=== PATIENT | female | born 1995 | race Caucasian/White ===

== ENCOUNTER 2019-10-12 19:04 | Inpatient (IN) | payer BC ==
[2019-10-12] MEDS ORDERED: TERBUTALINE 1 MG/ML VIAL SQ PRN (19:46)
[2019-10-12] MEDS ORDERED: METHYLERGONOVINE 0.2 MG/ML 1 ML AMP IM PRN (19:46)
[2019-10-12] MEDS ORDERED: LIDOCAINE 0.5% (PF) 5 MG/ML (50 ML SDV) SQ PRN (19:46)
[2019-10-12] MEDS ORDERED: CARBOPROST TROMETHAMINE 250 MCG/ML 1 ML AMP IM PRN (19:46)
[2019-10-12] MEDS ORDERED: OXYTOCIN 10 UNIT/ML 1 ML VIAL IM PRN (19:46)
[2019-10-12] MEDS ORDERED: OXYTOCIN 30 UNITS/500 ML NS 30 UNIT in SALINE 1 500ML.BAG IV SCH (20:00)
[2019-10-12] MEDS: LACTATED RINGERS 1,000 ML IV SCH (20:29)
[2019-10-12 20:45] LABS: Basophils # (A) 0.1 k/uL (0-0.2); Basophils % (A) 0 %; Eosinophils # (A) 0.1 k/uL (0-0.7); Eosinophils % (A) 1 %; HCT 39.4 % (34.0-46.0); Lymphocytes # (A) 1.5 k/uL (1.0-4.8); Lymphocytes % (A) 12 %; MCH 29.4 pg (25.0-35.0); MCHC 32.9 g/dL (31.0-37.0); MCV 89.5 fL (80.0-100.0); Mean Platelet Volume 7.9; Monocytes # (A) 0.7 k/uL (0-1.0); Monocytes % (A) 5 %; Neutrophils # (A) 10.1 k/uL (1.3-7.7); Neutrophils % (A) 80 %; Platelet Count 295 k/uL (150-450); RDW 14.5 % (11.5-15.5); WBC 12.6 k/uL (3.8-10.6)
[2019-10-12 20:59] LABS: ALT 15 U/L (4-34); AST 27 U/L (14-36); African American GFR (CKD) >90 (>60 ml/min/1.73 sqM); Blood Urea Nitrogen 12 mg/dL (7-17); Creatinine,Urine Random 65.7 mg/dL; LDH 437 U/L (313-618); Non-African American GFR(CKD) >90 (>60 ml/min/1.73 sqM); Protein/Creatinine Ratio,Urine 0.406; Uric Acid 4.8 mg/dL (3.7-7.4)
[2019-10-12 21:00] LABS: Appearance,Urine Clear (Clear); Bilirubin,Urine Negative (Negative); Blood,Urine Small (Negative); Color,Urine Light Yellow; Glucose,Urine (UA) Negative (Negative); Ketones,Urine Negative (Negative); Leukocyte Esterase,Urine Negative (Negative); Mucus,Urine Rare /hpf; Nitrite,Urine Negative (Negative); PH, Urine 6.5 (5.0-8.0); Protein,Urine Negative (Negative); RBC,Urine 34 /hpf (0-5); Specific Gravity,Urine 1.015 (1.001-1.035); Squamous Epithelial Cell,Urine <1 /hpf (0-4); Urobilinogen,Urine <2.0 mg/dL (<2.0); WBC,Urine 1 /hpf (0-5)
[2019-10-12 21:19] LABS: INR 0.9 (<1.2); Partial Thromboplastin Time 23.3 sec (22.0-30.0); Prothrombin Time 9.3 sec (9.0-12.0)
[2019-10-12] MEDS: BUTORPHANOL 1 MG/ML 1 ML VIAL IV PRN (23:48)
[2019-10-13] MEDS: BUTORPHANOL 1 MG/ML 1 ML VIAL IV PRN ×2 (02:03→04:03)
[2019-10-13] MEDS: LACTATED RINGERS 1,000 ML IV SCH ×2 (02:07→07:40)
[2019-10-13] MEDS: CLINDAMYCIN 900 MG in DEXTROSE 5% IN WATER 50 ML IVPB SCH ×4 (05:57→15:20)
[2019-10-13] MEDS ORDERED: ROPIVACAINE 100 MG, fentaNYL (PF) 200 MCG in SODIUM CHLORIDE 0.9% 76 ML EPIDURAL ONE (08:22)
--- NOTE | 2019-10-13 09:32 | P.HPOB ---
History of Present Illness H&P Date: 10/13/19 Chief Complaint: Spontaneous rupture of membranes 24-year-old presents at 39 weeks with spontaneous rupture membranes at 6 PM on 10/12/2019. She presented to the hospital 7:45 PM and was closed, thick, and -3 station. She is not nydia. heart tones 130 with moderate variability and reactive. Review of Systems All systems: negative Constitutional: Denies chills, Denies fever Eyes: denies blurred vision, denies pain Ears, nose, mouth and throat: Denies headache, Denies sore throat Cardiovascular: Denies chest pain, Denies shortness of breath Respiratory: Denies cough Gastrointestinal: Denies abdominal pain, Denies diarrhea, Denies nausea, Denies vomiting Genitourinary: Denies dysuria, Denies hematuria Musculoskeletal: Denies myalgias Integumentary: Denies pruritus, Denies rash Neurological: Denies numbness, Denies weakness Psychiatric: Denies anxiety, Denies depression Endocrine: Denies fatigue, Denies weight change Past Medical History Past Medical History: No Reported History Additional Past Medical History / Comment(s): Obstetric history: This is her first . She's had care with me since first trimester. Blood type A+, antibody is negative, HIV nonreactive, rubella immune, RPR nonreactive, hepatitis B negative, toxoplasma negative EDC by 8 week ultrasound. With her anatomy ultrasound showed a marginal previa which did resolve low. She did receive to depth during this . Her GBS is negative. History of Any Multi-Drug Resistant Organisms: None Reported Past Surgical History: Adenoidectomy, Tonsillectomy Additional Past Surgical History / Comment(s): [place] teeth removed Past Anesthesia/Blood Transfusion Reactions: No Reported Reaction Past Psychological History: No Psychological Hx Reported Smoking Status: Never smoker Past Alcohol Use History: None Reported Past Drug Use History: None Reported - Past Family History Father Family Medical History: No Reported History Medications and Allergies Home Medications Medication Instructions Recorded Confirmed Type Pnv No.95/Ferrous Fum/Folic AC 1 tab PO ONCE 10/12/19 10/12/19 History [ Multivitamin Tablet] Allergies Allergy/AdvReac Type Severity Reaction Status Date / Time Penicillins AdvReac Anaphylaxis Verified 10/12/19 19:15 Exam Osteopathic Statement: *. No significant issues noted on an osteopathic structural exam other than those noted in the History and Physical/Consult. Vital Signs Temp Pulse Resp BP Pulse Ox 10/12/19 19:52 97.8 F 107 H 16 160/89 98 10/12/19 19:46 97.8 F 107 H 16 160/89 98 Intake and Output 10/12/19 10/13/19 10/13/19 22:59 06:59 14:59 Other: # Voids 1 1 Weight 91.172 kg Heart: Regular rate and rhythm Lungs: Clear to auscultation bilaterally Abdomen: Soft, nontender Extremities: Negative Homans sign Results Result Diagrams: 10/12/19 20:20 10/12/19 20:20 Abnormal Lab Results - Last 24 Hours (Table) 10/12/19 10/12/19 10/12/19 Range/Units 20:20 20:20 20:20 WBC 12.6 H (3.8-10.6) k/uL Neutrophils # 10.1 H (1.3-7.7) k/uL Urine Blood Small H (Negative) Urine RBC 34 H (0-5) /hpf Urine Mucus Rare H (None) /hpf U Random Total Protein 26 H (<12) mg/dL Assessment and Plan (1) Normal labor Current Visit: Yes Status: Acute Code(s): O80 - ENCOUNTER FOR FULL-TERM UNCOMPLICATED DELIVERY; Z37.9 - OUTCOME OF DELIVERY, UNSPECIFIED SNOMED Code(s): 64128549 Plan: 1. Some of her blood pressures have been elevated today preeclamptic labs which were all negative except for the PC ratio was 0.4. It is unclear whether this was contaminated from the ruptured membranes. 2. Pitocin augmentation 3. Anticipate normal vaginal delivery.
[2019-10-13] MEDS ORDERED: diphenhydrAMINE 50 MG CAP PO PRN (13:29)
[2019-10-13] MEDS ORDERED: BENZOCAINE/MENTHOL SPRAY 1 GM/SPRAY AEROSOL TOPICAL PRN (13:29)
[2019-10-13] MEDS ORDERED: diphenhydrAMINE 25 MG CAP PO PRN (13:29)
[2019-10-13] MEDS ORDERED: WITCH HAZEL 1 EACH MED..PAD TOPICAL PRN (13:29)
[2019-10-13] MEDS ORDERED: LANOLIN CREAM 5 GM TUBE TOPICAL PRN (13:29)
[2019-10-13] MEDS ORDERED: SIMETHICONE 80 MG CHEWABLE PO PRN (13:29)
[2019-10-13] MEDS ORDERED: ZOLPIDEM 5 MG TAB PO PRN (13:29)
[2019-10-13] MEDS ORDERED: HYDROCORTISONE 2.5% RECTAL CREAM 30 GM TUBE RECTAL PRN (13:29)
[2019-10-13] MEDS ORDERED: diphenhydrAMINE 50 MG/ML 1 ML VIAL IVP PRN ×2 (13:29)
[2019-10-13] MEDS ORDERED: ACETAMINOPHEN TAB 325 MG TAB PO PRN (13:29)
[2019-10-13] MEDS ORDERED: OXYTOCIN 20 UNITS/1000 ML NS 1,000 ML IV SCH (13:30)
[2019-10-13] MEDS: SENNOSIDES-DOCUSATE SODIUM 1 EACH TAB PO SCH (19:38)
[2019-10-13] MEDS: IBUPROFEN 600 MG TAB PO PRN (19:38)
--- NOTE | 2019-10-14 02:34 | P.PROBDLV ---
Vaginal Delivery Note - . Vaginal Delivery Note: 24-year-old presents at 39 weeks with spontaneous rupture membranes at 6 PM on 10/12/2019. She presented to the hospital 7:45 PM and was closed, thick, and -3 station. She is not nydia. heart tones 130 with moderate variability and reactive. Pitocin augmentation was started. She started getting comfortable and had some position changes. Her cervix was 1 cm dilated she did get some Stadol. She dilated 3 cm and got an epidural and was comforta ble. Her cervix was completely dilated at 11:27 AM. She pushed and delivered a viable female over intact perineum under epidural anesthesia at 1300. Head delivered OA, anterior shoulder delivered gentle downward guidance of the posterior shoulder and rest of body. Nose and mouth bulb suctioned, cord clamped and cut, infant placed mother's abdomen. Apgars 8, 9, weight 7 lbs. 7 oz. Placenta delivered spontaneously, intact with three-vessel cord at 1304. Vagina, cervix, and perineum were inspected. Second-degree midline laceration was repaired with 2-0 Vicryl and 3-0 Vicryl. Quantitative blood loss 219 mL. Mother and baby in stable condition.
[2019-10-14 06:27] LABS: Basophils % (A) 0 %; Eosinophils % (A) 0 %; HCT 33.9 % (34.0-46.0); HGB 10.8 gm/dL (11.4-16.0); Lymphocytes # (A) 1.9 k/uL (1.0-4.8); Lymphocytes % (A) 11 %; MCH 29.4 pg (25.0-35.0); MCHC 31.9 g/dL (31.0-37.0); Mean Platelet Volume 7.6; Monocytes # (A) 0.7 k/uL (0-1.0); Monocytes % (A) 4 %; Neutrophils # (A) 13.4 k/uL (1.3-7.7); Neutrophils % (A) 83 %; Platelet Count 264 k/uL (150-450); RBC 3.68 m/uL (3.80-5.40); RDW 14.9 % (11.5-15.5); WBC 16.3 k/uL (3.8-10.6)
--- NOTE | 2019-10-14 06:35 | P.PNOBGVD ---
Subjective - Subjective Principal diagnosis: Status was normal vaginal delivery day #1 Interval history: Patient seen and examined. Denies nausea, vomiting, chest pain, shortness of breath, calf pain, headache, vision changes or right upper quadrant pain. She had a few elevated blood pressures overnight up to 140s over 100s and 150s over 90s. Her most recent though was 135/85. Patient reports: Reports appetite normal, Reports voiding normally, Reports pain well controlled, Reports ambulating normally : doing well Objective - Latest Vital Signs Latest vital signs: Vital Signs Temp Pulse Resp BP Pulse Ox 10/14/19 04:00 98.6 F 82 16 135/88 97 10/14/19 00:00 98.7 F 85 19 150/94 10/13/19 20:00 98.7 F 103 H 16 147/102 99 10/13/19 15:10 99.2 F 108 H 15 146/75 98 10/13/19 14:40 99.2 F 126 H 15 141/75 98 10/13/19 14:10 125 H 15 140/78 98 10/13/19 13:55 130 H 15 145/79 98 10/13/19 13:40 122 H 15 141/78 98 10/13/19 13:25 120 H 16 141/80 98 10/13/19 13:10 98.1 F 119 H 15 142/84 98 Intake and Output 10/13/19 10/13/19 10/14/19 14:59 22:59 06:59 Intake Total 100 Balance 100 Intake: IV 100 Other: # Voids 2 - Exam Lungs: bilateral: normal Chest: Normal S1, Normal S2 Extremities: Present: normal Abdomen: Present: normal appearance, soft Uterus: Present: normal, firm Assessment and Plan (1) Normal labor Current Visit: Yes Status: Resolved Code(s): O80 - ENCOUNTER FOR FULL-TERM UNCOMPLICATED DELIVERY; Z37.9 - OUTCOME OF DELIVERY, UNSPECIFIED SNOMED Code(s): 86023790 (2) Status post normal vaginal delivery Current Visit: Yes Status: Acute Code(s): [id number] - SNOMED Code(s): 699755090 (3) Gestational hypertension Current Visit: Yes Status: Acute Code(s): O13.9 - GESTATIONAL HTN W/O SIGNIFICANT PROTEINURIA, UNSP TRIMESTER SNOMED Code(s): 436617953 Plan: 1. Continue care 2. I will keep the patient for another night to monitor her blood pressures. If they continue to be elevated and may start labetalol. 3. Signs and symptoms preeclampsia were reviewed. The patient did have a PC ratio 0.4 when she arrived, there was significant blood in her urine and her water was broken at times it was unclear whether the protein was from those other things.
[2019-10-14] MEDS: SENNOSIDES-DOCUSATE SODIUM 1 EACH TAB PO SCH ×2 (07:33→22:55)
[2019-10-14] MEDS: IBUPROFEN 600 MG TAB PO PRN ×2 (14:08→19:37)
--- NOTE | 2019-10-15 07:55 | P.DS ---
Providers Date of admission: 10/12/19 19:37 Expected date of discharge: 10/15/19 Attending physician: Dara Santana Primary care physician: Stated None - Discharge Diagnosis(es) (1) Normal labor Current Visit: Yes Status: Resolved (2) Status post normal vaginal delivery Current Visit: Yes Status: Acute (3) Gestational hypertension Current Visit: Yes Status: Acute Hospital Course: Pt presented with SROM and underwent a normal vaginal delivery after pitocin augmentation. She was found to have some high BPs during labor and after. IN the last 24 hours, the highest has been 140/90. She will be discharged home PPD #2 with instructions to call or return with any s/s of pre-eclampsia. She does have a BP cuff at home as well and will call with elevations. parameters were discussed with pt and her . Plan - Discharge Summary New Discharge Prescriptions: New Ibuprofen [Motrin] 600 mg PO Q6HR PRN #30 tab PRN Reason: Mild Pain Or Fever >= 100.5 No Action Pnv No.95/Ferrous Fum/Folic AC [ Multivitamin Tablet] 1 tab PO ONCE Discharge Medication List Pnv No.95/Ferrous Fum/Folic AC [ Multivitamin Tablet] 1 tab PO ONCE 10/12/19 [History] Ibuprofen [Motrin] 600 mg PO Q6HR PRN #30 tab 10/15/19 [Rx] Follow up Appointment(s)/Referral(s): Dara Santana DO [Doctor of Osteopathic Medicine] - 6 Weeks Discharge Disposition: HOME SELF-CARE
[2019-10-15] MEDS: IBUPROFEN 600 MG TAB PO PRN (08:54)
[2019-10-15] MEDS: SENNOSIDES-DOCUSATE SODIUM 1 EACH TAB PO SCH (08:55)
[2019-10-15 16:05] VITALS: BP 151/81; PULSE 78; RESP 16; TEMP 98.3
== END 2019-10-15 17:50 | disposition home or self-care (01) | DRG 807 ==
LOC: FBPOP 19:04 → 4FBP 19:37
PROVIDERS: ADMIT Obstetrics & Gynecology; ATTEND Obstetrics & Gynecology
PROC: 10E0XZZ Delivery of Products of Conception, External Approach (ICD-10-PCS; principal; 2019-10-14)
PROC: 0KQM0ZZ Repair Perineum Muscle, Open Approach (ICD-10-PCS; principal; 2019-10-14)
PROC: 00HU33Z Insertion of Infusion Device into Spinal Canal, Percutaneous Approach (ICD-10-PCS; principal; 2019-10-14)
PROC: 3E033VJ Introduction of Other Hormone into Peripheral Vein, Percutaneous Approach (ICD-10-PCS; principal; 2019-10-14)
PROC: 3E0R3BZ Introduction of Anesthetic Agent into Spinal Canal, Percutaneous Approach (ICD-10-PCS; principal; 2019-10-14)
DX: O13.4 Gestational [pregnancy-induced] hypertension without significant proteinuria, complicating childbirth (principal); Z37.0 Single live birth; O12.14 Gestational proteinuria, complicating childbirth; O70.1 Second degree perineal laceration during delivery; Z90.49 Acquired absence of other specified parts of digestive tract; Z90.89 Acquired absence of other organs; Z88.0 Allergy status to penicillin
CPT/HCPCS: 59025; 81001; 82565; 82570; 83615; 84112; 84156; 84450; 84460; 84520; 84550; 85025; 85384; 85610; 85730; 86850; 86900; 86901; 99213

== ENCOUNTER 2019-10-19 17:23 | Inpatient (IN) | payer BC ==
[2019-10-19 18:01] LABS: Basophils # (A) 0.1 k/uL (0-0.2); Basophils % (A) 1 %; Eosinophils # (A) 0.2 k/uL (0-0.7); Eosinophils % (A) 2 %; Lymphocytes # (A) 1.6 k/uL (1.0-4.8); Lymphocytes % (A) 13 %; MCH 29.8 pg (25.0-35.0); MCHC 32.6 g/dL (31.0-37.0); MCV 91.3 fL (80.0-100.0); Mean Platelet Volume 7.4; Monocytes # (A) 0.5 k/uL (0-1.0); Monocytes % (A) 4 %; Neutrophils # (A) 9.3 k/uL (1.3-7.7); Neutrophils % (A) 79 %; Platelet Count 341 k/uL (150-450); RBC 4.38 m/uL (3.80-5.40); RDW 14.4 % (11.5-15.5); WBC 11.8 k/uL (3.8-10.6)
[2019-10-19 18:08] LABS: Appearance,Urine Clear (Clear); Bacteria,Urine Rare /hpf; Bilirubin,Urine Negative (Negative); Blood,Urine Large (Negative); Color,Urine Light Yellow; Glucose,Urine (UA) Negative (Negative); Ketones,Urine 1+ (Negative); Leukocyte Esterase,Urine Moderate (Negative); Mucus,Urine Rare /hpf; Nitrite,Urine Negative (Negative); Protein,Urine Negative (Negative); Protein/Creatinine Ratio,Urine 0.381; RBC,Urine 8 /hpf (0-5); Specific Gravity,Urine 1.007 (1.001-1.035); Squamous Epithelial Cell,Urine <1 /hpf (0-4); Urobilinogen,Urine <2.0 mg/dL (<2.0); WBC,Urine 11 /hpf (0-5)
[2019-10-19 18:08] LABS: ALT 66 U/L (4-34); AST 106 U/L (14-36); African American GFR (CKD) >90 (>60 ml/min/1.73 sqM); Blood Urea Nitrogen 19 mg/dL (7-17); LDH 718 U/L (313-618); Non-African American GFR(CKD) >90 (>60 ml/min/1.73 sqM); Uric Acid 7.3 mg/dL (3.7-7.4)
[2019-10-19] MEDS ORDERED: MAGNESIUM SULFATE-WATER PMX 4 GM in WATER FOR INJECTION 1 100ML.BAG IVPB ONE (19:23)
[2019-10-19] MEDS ORDERED: CALCIUM GLUCONATE 1 GM/10 ML VIAL IV PRN (19:23)
--- NOTE | 2019-10-19 19:32 | P.HPOB ---
History of Present Illness H&P Date: 10/19/19 Chief Complaint: preeclampsia Negative is a 24-year-old female who had a spontaneous vaginal delivery on Monday. Through the week she is checks her blood pressures and today she had a blood pressure 180/116 at home. She denies any other signs or symptoms of pree clampsia but has severe blood pressure elevations. She was sent immediately to labor and delivery where we have followed her blood pressures closely. She is had the last blood pressure 173/103 and she is had other blood pressure elevations 160/100. There is significant skin turned over severe preeclampsia especially in light of her AST and LDH being elevated. We have started making sulfate with 4 g bolus and 2 g per hour with the Amaral her fluid intake to 2400 mL in 24 hours. We'll plan to allow some diet intake as she is breast- feeding. We'll also start labetalol by mouth at a low dose tonight and reevaluate blood pressures. May need to increase dosing or ultimately use some type of IV medication to bring her blood pressure down should it remain elevated or she begin to become more symptomatic. Again she denies any headache, epigastric pain or visual changes. Her deep tendon reflexes are +1 to +2 out of 4 she has minimal peripheral edema and no central edema but I can detect at this time. Assessment day 6 with likely severe preeclampsia/HELLP Plan IV magnesium sulfate therapy and antihypertensives Past Medical History Past Medical History: No Reported History Additional Past Medical History / Comment(s): Obstetric history: This is her first . She's had care with me since first trimester. Blood type A+, antibody is negative, HIV nonreactive, rubella immune, RPR nonreactive, hepatitis B negative, toxoplasma negative EDC by 8 week ultrasound. With her anatomy ultrasound showed a marginal previa which did resolve low. She did receive to depth during this . Her GBS is negative. History of Any Multi-Drug Resistant Organisms: None Reported Past Surgical History: Adenoidectomy, Tonsillectomy Additional Past Surgical History / Comment(s): [place] teeth removed Past Anesthesia/Blood Transfusion Reactions: No Reported Reaction Smoking Status: Never smoker - Past Family History Father Family Medical History: No Reported History Medications and Allergies Home Medications Medication Instructions Recorded Confirmed Type Pnv No.95/Ferrous Fum/Folic AC 1 tab PO ONCE 10/12/19 10/19/19 History [ Multivitamin Tablet] Ibuprofen [Motrin] 600 mg PO Q6HR PRN #30 tab 10/15/19 10/19/19 Rx Allergies Allergy/AdvReac Type Severity Reaction Status Date / Time Penicillins AdvReac Anaphylaxis Verified 10/19/19 17:28 Exam Osteopathic Statement: *. No significant issues noted on an osteopathic structural exam other than those noted in the History and Physical/Consult. Intake and Output 10/19/19 10/19/19 10/19/19 06:59 14:59 22:59 Other: Weight 81.647 kg - OBG Physical Exam Breast: both: normal (no masses) Abdomen: bowel sounds normal, no diffuse tenderness, no bruit present, no guarding noted, no hepatomegaly, no splenomegaly, no mass Vulva: both: normal Vagina: normal moisture, no discharge Cervix: no lesion, no discharge Uterus: normal size, normal contour Adnexa: both: normal Anus/Rectum: normal perianal skin, no rectal mass, no hemorrhoids, heme negative Results Result Diagrams: 10/19/19 17:50 10/19/19 17:50 Abnormal Lab Results - Last 24 Hours (Table) 10/19/19 10/19/19 10/19/19 Range/Units 17:47 17:50 17:50 WBC 11.8 H (3.8-10.6) k/uL Neutrophils # 9.3 H (1.3-7.7) k/uL BUN 19 H (7-17) mg/dL AST 106 H (14-36) U/L ALT 66 H (4-34) U/L Lactate Dehydrogenase 718 H (313-618) U/L Urine Ketones 1+ H (Negative) Urine Blood Large H (Negative) Ur Leukocyte Esterase Moderate H (Negative) Urine RBC 8 H (0-5) /hpf Urine WBC 11 H (0-5) /hpf Urine Bacteria Rare H (None) /hpf Urine Mucus Rare H (None) /hpf
[2019-10-19] MEDS: LACTATED RINGERS 1,000 ML IV SCH (19:45)
[2019-10-19] MEDS: MAGNESIUM SULFATE-WATER PMX 20 GM in WATER FOR INJECTION 1 500ML.BAG IV SCH (20:13)
[2019-10-19] MEDS: LABETALOL 100 MG TAB PO SCH (20:48)
[2019-10-20] MEDS: MAGNESIUM SULFATE-WATER PMX 20 GM in WATER FOR INJECTION 1 500ML.BAG IV SCH ×2 (06:09→20:26)
[2019-10-20] MEDS: LABETALOL 100 MG TAB PO SCH ×2 (09:06→21:02)
--- NOTE | 2019-10-20 10:07 | P.PN ---
Progress Note - Text Progress Note Date: 10/20/19 Neli is seen and evaluated this morning. Overall she is feeling well. She does have some symptoms from the mag sulfate including feeling somewhat dizzy and a little nauseous which is not uncommon. She denies any significant headaches. No change in epigastric pain or visual issues. We'll continue care for now. Maxalt has been decreased to 1 g per hour as she is still asymptomatic and we'll discontinue a 24 hours. Her blood pressures since about 9:00 last night do appear much improved in the 130/80-140/90 range. She has no other signs or symptoms of preeclampsia nor does she have any signs or symptoms of mag toxicity at this time. We will continue current care for now with expectation to repeat blood work in the morning and make sure there are no other changes prior to likely discharge to home on labetalol. On physical exam vital signs currently are stable and she is afebrile. Heart regular, lungs clear, extremities without pain. Abdomen is soft and nontender. Assessment day 7 with preeclampsia/HELLP Plan continue care for now
[2019-10-21 04:26] LABS: Appearance,Urine Clear (Clear); Bacteria,Urine Rare /hpf; Bilirubin,Urine Negative (Negative); Blood,Urine Large (Negative); Color,Urine Yellow; Glucose,Urine (UA) Negative (Negative); Ketones,Urine Negative (Negative); Leukocyte Esterase,Urine Moderate (Negative); Mucus,Urine Occasional /hpf; Nitrite,Urine Negative (Negative); Protein,Urine 1+ (Negative); RBC,Urine >182 /hpf (0-5); Specific Gravity,Urine 1.015 (1.001-1.035); Squamous Epithelial Cell,Urine 2 /hpf (0-4); Urobilinogen,Urine <2.0 mg/dL (<2.0); WBC,Urine 38 /hpf (0-5)
[2019-10-21 05:46] LABS: HCT 38.3 % (34.0-46.0); HGB 12.3 gm/dL (11.4-16.0); MCH 29.7 pg (25.0-35.0); MCV 92.8 fL (80.0-100.0); Platelet Count 317 k/uL (150-450); RBC 4.13 m/uL (3.80-5.40); RDW 14.4 % (11.5-15.5); WBC 10.7 k/uL (3.8-10.6)
[2019-10-21 05:56] LABS: ALT 50 U/L (4-34); AST 55 U/L (14-36); African American GFR (CKD) >90 (>60 ml/min/1.73 sqM); LDH 640 U/L (313-618); Non-African American GFR(CKD) >90 (>60 ml/min/1.73 sqM)
[2019-10-21] MEDS: LACTATED RINGERS 1,000 ML IV SCH (07:15)
[2019-10-21] MEDS: LABETALOL 100 MG TAB PO SCH (08:50)
[2019-10-21] MEDS ORDERED: LABETALOL 100 MG TAB PO STA (12:43)
--- NOTE | 2019-10-21 12:52 | P.PN ---
Progress Note - Text Progress Note Date: 10/21/19 Pt still does not have any symptoms. She denies SANDOVAL, CP, SOB, calf pain, RUQ pain or vision changes. Her labs have improved but are still abnormal. Her BPs on 100mg labetalol BID are high 140s/high 90's. I would like to increase her labetalol and keep her another night to review how this effects her pressures. Pt and are in agreement.
[2019-10-21] MEDS ORDERED: IBUPROFEN 600 MG TAB PO PRN (18:55)
[2019-10-21] MEDS: ACETAMINOPHEN TAB 325 MG TAB PO PRN (19:02)
[2019-10-21] MEDS: LABETALOL 200 MG TAB PO SCH (20:30)
--- NOTE | 2019-10-22 07:22 | P.DS ---
Providers Date of admission: 10/19/19 19:22 Expected date of discharge: 10/22/19 Attending physician: Dara Santana Primary care physician: Stated None - Discharge Diagnosis(es) (1) Pre-eclampsia Current Visit: Yes Status: Acute (2) Status post normal vaginal delivery Current Visit: No Status: Acute Hospital Course: Patient presented a few days with increased blood pressures and abnormal preeclamptic labs. She is admitted for observation and given magnesium sulfate 4 g bolus and 2 g an hour for 24 hours. She was then placed on labetalol 100 mg twice a day which did not control her blood pressures and also was increased to 200 mg twice a day. Her blood pressures are controlled, the only time she has elevated pressures when she is extremely anxious and tearful. She'll be discharged home on 200 mg labetalol twice daily with education about signs and symptoms of preeclampsia. Plan - Discharge Summary New Discharge Prescriptions: New Labetalol [Trandate] 200 mg PO BID #60 tab No Action Pnv No.95/Ferrous Fum/Folic AC [ Multivitamin Tablet] 1 tab PO ONCE Ibuprofen [Motrin] 600 mg PO Q6HR PRN #30 tab PRN Reason: Mild Pain Or Fever >= 100.5 Discharge Medication List Pnv No.95/Ferrous Fum/Folic AC [ Multivitamin Tablet] 1 tab PO ONCE 10/12/19 [History] Ibuprofen [Motrin] 600 mg PO Q6HR PRN #30 tab 10/15/19 [Rx] Labetalol [Trandate] 200 mg PO BID #60 tab 10/22/19 [Rx] Follow up Appointment(s)/Referral(s): Dara Santana DO [Doctor of Osteopathic Medicine] - 1 Week Discharge Disposition: HOME SELF-CARE
[2019-10-22] MEDS: LABETALOL 200 MG TAB PO SCH (09:20)
[2019-10-22 09:31] VITALS: RESP 17; TEMP 97.2
[2019-10-22] MEDS: ACETAMINOPHEN TAB 325 MG TAB PO PRN (09:43)
[2019-10-22 11:32] VITALS: BP 148/90; PULSE 75
== END 2019-10-22 12:00 | disposition home or self-care (01) | DRG 776 ==
LOC: FBPOP 17:23 → OBSVTOIN 19:22 → 4FBP 19:22
PROVIDERS: ADMIT Obstetrics & Gynecology; ATTEND Obstetrics & Gynecology
DX: O14.25 HELLP syndrome, complicating the puerperium (principal); Z88.0 Allergy status to penicillin
CPT/HCPCS: 81001; 82565; 82570; 83615; 83735; 84156; 84450; 84460; 84520; 84550; 85025; 85027; 99215